=== PATIENT | female | born 1995 | race Caucasian/White ===

== ENCOUNTER → 2018-04-03 | Outpatient (CLI) | payer BC ==
--- NOTE | 2018-04-03 17:17 | Diagnostic Imaging Report ---
PROCEDURE: MRI left joint lower extremity without contrast. TECHNIQUE: Multiplanar, multisequence MR imaging of the left knee was performed without contrast. COMPARISON: None available. INDICATION: Left knee pain after injury. FINDINGS: MENISCI Medial meniscus: Normal. Lateral meniscus: Normal. LIGAMENTS ACL: Complete rupture of the ACL in its mid aspect. PCL: Intact. MCL: Intact. LCL: The lateral collateral ligamentous complex is intact. EXTENSOR MECHANISM The extensor mechanism is intact. CARTILAGE The articular cartilage throughout the knee is well preserved. No acute chondral defect or osteochondral lesion. BONE There are subcortical contusions in the posterior aspect of the medial and lateral tibial plateaus. No compression fracture within the femoral condyles. SOFT TISSUE Large knee joint effusion. No Paige's cyst. IMPRESSION: 1. Complete rupture of the ACL. 2. Associated bone contusions in the posterior aspect of the medial and lateral tibial plateaus. No macroscopic fracture. 3. No meniscal tear. 4. No articular cartilage or osteochondral injury. 5. No sprain or tear of the medial or lateral collateral ligamentous complexes. Dictated by: Dictated on workstation # [id number]
== END ==
LOC: RAD 16:04
PROVIDERS: ATTEND Nurse Practitioner Family
DX: S83.512A Sprain of anterior cruciate ligament of left knee, initial encounter (principal); S80.12XA Contusion of left lower leg, initial encounter; Y93.63 Activity, rugby
CPT/HCPCS: 73721

== ENCOUNTER → 2019-07-09 | Outpatient (CLI) | payer BC, MEDICAID ==
--- NOTE | 2019-07-09 14:01 | Diagnostic Imaging Report ---
PROCEDURE: US Thyroid. TECHNIQUE: Multiple real-time grayscale images were obtained of the thyroid in various projections. INDICATION: Hyperthyroidism. FINDINGS: Right lobe of the thyroid measures 5.0 x 2.0 x 1.9 cm and the left lobe measures 4.8 x 1.5 x 1.5 cm. Isthmus is 4 mm in thickness. Both lobes demonstrate homogeneous echotexture. No discrete thyroid mass is detected. IMPRESSION: Unremarkable thyroid ultrasound. Dictated by: Dictated on workstation # [id number]
== END ==
LOC: RAD 13:31
PROVIDERS: ATTEND Internal Medicine Endocrinology, Diabetes & Metabolism
DX: E05.90 Thyrotoxicosis, unspecified without thyrotoxic crisis or storm (principal)
CPT/HCPCS: 76536